=== PATIENT | male | born 1955 | race African-American/Black ===

== ENCOUNTER 2020-01-04 11:48 | Inpatient (IN) ==
[2020-01-04] MEDS ORDERED: LACTATED RINGERS 1,000 ML IV ONE (12:16)
[2020-01-04 12:51] LABS: Basophils % 0.2 % (0.0-0.8); Eosinophils # 0.1 10*3/uL (0.0-0.87); Eosinophils % 1.4 % (0.00-10.9); Hematocrit 46.9 VOL% (42.0-52.0); Hemoglobin 15.7 GM/DL (14.0-18.0); Immature Granulocytes % 0.2 %; Immature Granulocytes Absolute 0.01 #; Lymphocytes # 0.7 10*3/uL (1.4-4.0); Lymphocytes % 12.7 % (21.2-54.2); Mean Corpuscular HGB Conc 33.5 GM/DL (32-36); Mean Corpuscular Volume 83.9 FL (87-102); Mean Platelet Volume 10.9 FL (9.6-12.0); Monocytes % 8.6 % (1.7-12.7); Neutrophils % 76.9 % (38.7-73.9); Platelet Count 171 T/CUMM (130-400); Red Blood Count 5.59 MC/CUMM (3.8-5.5); Red Cell Distribution Width 11.9 % (9.3-17.3); White Blood Count 5.1 T/CUMM (4-12)
[2020-01-04 13:13] LABS: Albumin 2.8 G/DL (3.4-5.0); Bilirubin,Total 1.9 MG/DL (0.2-1.0); Calcium 9.2 MG/DL (8.5-10.1); Ferritin 623.2 ng/ml (26-388); Total Protein 7.8 G/DL (6.4-8.3)
[2020-01-04 13:18] LABS: Atypical Lymphocytes Few; Eosinophils 1 % (0-10); Lymphocytes 16 % (20-55); Platelet Estimate Adequate; Segmented Neutrophils 79 % (50-85); Total Cells Counted 100
[2020-01-04 13:33] LABS: INR 1.1; PT Patient Result 11.9 SECS (9.8-11.9)
[2020-01-04] MEDS ORDERED: cefTRIAXone 1,000 MG in SODIUM CHLORIDE 0.9% 100 ML IV STA (13:40)
[2020-01-04] MEDS ORDERED: DEXAMETHASONE 4 MG/1 ML VIAL IV ONE (14:39)
[2020-01-04] MEDS ORDERED: LORazepam 2 MG/1 ML VIAL IV PRN (14:40)
[2020-01-04] MEDS ORDERED: ENOXAPARIN 60 MG/0.6 ML SYRINGE SUBCUT SCH (15:00)
[2020-01-04 15:03] LABS: Risk Ratio 4.53
[2020-01-04 15:04] LABS: ABG Base Excess 1.6 MMOL/L (-2.5-2.5); ABG HCO3 25.8 MMOL/L (20-26); ABG Oxygen Saturation 95.9 % (95-100); ABG PCO2 38.2 MM HG (35-48); ABG PH 7.435 (7.35-7.45); ABG PO2 86.4 MM HG (80-95); ABG TCO2 22.5 MMOL/L (23-27)
[2020-01-04] MEDS: ENOXAPARIN 80 MG/0.8 ML SYRINGE SUBCUT SCH (15:15)
[2020-01-04] MEDS ORDERED: BISACODYL 5 MG TABLET PO PRN (15:26)
[2020-01-04] MEDS ORDERED: MORPHINE 4 MG/1 ML VIAL IV PRN (15:26)
[2020-01-04] MEDS ORDERED: ZALEPLON 5 MG CAPSULE PO PRN (15:26)
[2020-01-04] MEDS ORDERED: hydrALAZINE 20 MG/1 ML VIAL IV PRN (15:26)
[2020-01-04] MEDS ORDERED: DOCUSATE SODIUM 100 MG CAPSULE PO PRN (15:26)
[2020-01-04] MEDS ORDERED: ONDANSETRON 4 MG/2 ML VIAL IV PRN (15:26)
[2020-01-04] MEDS ORDERED: DEXTROSE 50% 25 GM/50 ML VIAL IV PRN (15:26)
[2020-01-04] MEDS ORDERED: LACTULOSE 20 GM/30 ML UDCUP PO PRN (15:26)
[2020-01-04] MEDS ORDERED: diphenhydrAMINE CAP 25 MG CAPSULE PO PRN (15:26)
[2020-01-04] MEDS ORDERED: guaiFENesin/DM ER 600-30 MG TABLET PO PRN (15:26)
[2020-01-04] MEDS ORDERED: SIMETHICONE CHEW 125 MG TABLET PO PRN (15:26)
[2020-01-04] MEDS ORDERED: ALUMINUM/MAGNES/SIMETH MAX STR 30 ML UDCUP PO PRN (15:26)
[2020-01-04] MEDS ORDERED: CALCIUM CARBONATE CHEW 500 MG TABLET PO PRN (15:26)
[2020-01-04] MEDS ORDERED: GLUCAGON 1 MG VIAL IM PRN (15:26)
[2020-01-04] MEDS ORDERED: traZODone 50 MG TABLET PO PRN (15:26)
[2020-01-04] MEDS ORDERED: ACETAMINOPHEN 325 MG TABLET PO PRN (15:26)
[2020-01-04] MEDS: AZITHROMYCIN INJ 500 MG in SODIUM CHLORIDE 0.9% 250 ML IV SCH (16:03)
[2020-01-04 16:12] LABS: Bilirubin,Urine Negative (Negative); Blood, Urine Negative (Negative); Glucose,Urine (UA) Negative (Negative); Ketones,Urine 5 mg/dL (Negative); Nitrite,Urine Negative (Negative); Protein,Urine Negative; RBC,Urine 3 /HPF (0-4); Urine Appearance CLEAR (Clear); Urine Color Yellow (Yellow); Urine Specific Gravity 1.051 (1.001-1.035); WBC,Urine 1 /HPF (0-6)
[2020-01-04] MEDS ORDERED: levETIRAcetam 500 MG TABLET PO SCH (21:00)
[2020-01-04] MEDS: levETIRAcetam 500 MG TABLET PO SCH (21:48)
[2020-01-05] MEDS: ENOXAPARIN 80 MG/0.8 ML SYRINGE SUBCUT SCH ×2 (03:26→14:22)
[2020-01-05 05:13] LABS: Basophils % 0.1 % (0.0-0.8); Hematocrit 37.6 VOL% (42.0-52.0); Immature Granulocytes % 0.5 %; Immature Granulocytes Absolute 0.04 #; Lymphocytes # 0.7 10*3/uL (1.4-4.0); Lymphocytes % 8.5 % (21.2-54.2); Mean Corpuscular Volume 83.7 FL (87-102); Mean Platelet Volume 10.9 FL (9.6-12.0); Monocytes % 7.3 % (1.7-12.7); Neutrophils % 83.6 % (38.7-73.9); Platelet Count 198 T/CUMM (130-400); Red Blood Count 4.49 MC/CUMM (3.8-5.5); Red Cell Distribution Width 11.9 % (9.3-17.3)
[2020-01-05 05:14] LABS: Hemoglobin 12.8 GM/DL (14.0-18.0); White Blood Count 8.4 T/CUMM (4-12)
[2020-01-05 05:32] LABS: Albumin 2.4 G/DL (3.4-5.0); Bilirubin,Total 0.9 MG/DL (0.2-1.0); Calcium 8.6 MG/DL (8.5-10.1); Ferritin 588.6 ng/ml (26-388); Osmolality,Calculated 278.7 MOS/KG (273-304); Total Protein 7.1 G/DL (6.4-8.3)
[2020-01-05 05:56] LABS: Thyroid Stimulating Hormone 0.393 uIU/ml (0.358-3.74)
[2020-01-05 06:22] LABS: Sedimentation Rate-Westergren 56 MM/HR (0-20)
[2020-01-05] MEDS: levETIRAcetam 500 MG TABLET PO SCH ×2 (08:00→20:02)
[2020-01-05] MEDS: FINASTERIDE 5 MG TABLET PO SCH (08:00)
[2020-01-05] MEDS: PANTOPRAZOLE 40 MG TABLET PO SCH (08:00)
[2020-01-05] MEDS: DEXAMETHASONE 4 MG/1 ML VIAL IV SCH (08:01)
[2020-01-05 09:05] LABS: Hepatitis B Core IgM Quant 0.06 Index; Hepatitis B Surface Ag Quant < 0.10 Index; Hepatitis B Surface Ag Result Negative (Negative); Hepatitis C Virus Ab Quant 0.11 Index; Hepatitis C Virus Ab Result Negative (Negative)
[2020-01-05] MEDS: AZITHROMYCIN INJ 500 MG in SODIUM CHLORIDE 0.9% 250 ML IV SCH (14:23)
[2020-01-05] MEDS: cefTRIAXone 1,000 MG in SYRINGE 1 EACH IV SCH (14:23)
[2020-01-06] MEDS: ENOXAPARIN 80 MG/0.8 ML SYRINGE SUBCUT SCH ×2 (03:03→14:04)
[2020-01-06 05:23] LABS: Basophils % 0.1 % (0.0-0.8); Eosinophils % 0.1 % (0.00-10.9); Hematocrit 38.4 VOL% (42.0-52.0); Hemoglobin 12.9 GM/DL (14.0-18.0); Immature Granulocytes % 0.7 %; Immature Granulocytes Absolute 0.09 #; Lymphocytes % 8.2 % (21.2-54.2); Mean Corpuscular HGB Conc 33.6 GM/DL (32-36); Mean Corpuscular Volume 83.5 FL (87-102); Monocytes % 5.1 % (1.7-12.7); Neutrophils % 85.8 % (38.7-73.9); Platelet Count 230 T/CUMM (130-400); White Blood Count 12.7 T/CUMM (4-12)
[2020-01-06 06:34] LABS: Sedimentation Rate-Westergren 57 MM/HR (0-20)
[2020-01-06 06:44] LABS: Albumin 2.4 G/DL (3.4-5.0); Bilirubin,Total 1.6 MG/DL (0.2-1.0); Calcium 8.7 MG/DL (8.5-10.1); Ferritin 497.8 ng/ml (26-388); Total Protein 6.5 G/DL (6.4-8.3)
[2020-01-06] MEDS: FINASTERIDE 5 MG TABLET PO SCH (09:25)
[2020-01-06] MEDS: PANTOPRAZOLE 40 MG TABLET PO SCH (09:25)
[2020-01-06] MEDS: DEXAMETHASONE 4 MG/1 ML VIAL IV SCH (09:25)
[2020-01-06] MEDS: levETIRAcetam 500 MG TABLET PO SCH ×2 (09:25→20:00)
[2020-01-06] MEDS: cefTRIAXone 1,000 MG in SYRINGE 1 EACH IV SCH (14:05)
[2020-01-06] MEDS: AZITHROMYCIN INJ 500 MG in SODIUM CHLORIDE 0.9% 250 ML IV SCH (14:05)
[2020-01-06 21:56] LABS: Specimen Source THROAT
[2020-01-07] MEDS: ENOXAPARIN 80 MG/0.8 ML SYRINGE SUBCUT SCH (02:48)
[2020-01-07 05:46] LABS: Basophils % 0.1 % (0.0-0.8); Eosinophils % 0.1 % (0.00-10.9); Hematocrit 35.6 VOL% (42.0-52.0); Immature Granulocytes % 0.8 %; Immature Granulocytes Absolute 0.09 #; Lymphocytes # 1.2 10*3/uL (1.4-4.0); Lymphocytes % 11.5 % (21.2-54.2); Mean Corpuscular HGB Conc 33.7 GM/DL (32-36); Mean Corpuscular Volume 84.4 FL (87-102); Mean Platelet Volume 10.5 FL (9.6-12.0); Neutrophils % 81.5 % (38.7-73.9); Platelet Count 259 T/CUMM (130-400); Red Blood Count 4.22 MC/CUMM (3.8-5.5); Red Cell Distribution Width 11.9 % (9.3-17.3); White Blood Count 10.7 T/CUMM (4-12)
[2020-01-07 06:15] LABS: Albumin 2.4 G/DL (3.4-5.0); Bilirubin,Total 0.8 MG/DL (0.2-1.0); Ferritin 457.1 ng/ml (26-388); Osmolality,Calculated 281.3 MOS/KG (273-304); Total Protein 6.6 G/DL (6.4-8.3)
[2020-01-07 08:02] LABS: Sedimentation Rate-Westergren 53 MM/HR (0-20)
[2020-01-07] MEDS: DEXAMETHASONE 4 MG/1 ML VIAL IV SCH (08:30)
[2020-01-07] MEDS: levETIRAcetam 500 MG TABLET PO SCH (08:31)
[2020-01-07] MEDS: PANTOPRAZOLE 40 MG TABLET PO SCH (08:31)
[2020-01-07] MEDS: FINASTERIDE 5 MG TABLET PO SCH (08:31)
[2020-01-07 12:03] VITALS: BP 125/76
== END 2020-01-07 12:17 | disposition home or self-care (01) | DRG 193 ==
LOC: N.ED 11:48 → N.EDINP 15:24 → N.2E 16:42
PROVIDERS: ADMIT Family Medicine; ATTEND Family Medicine